=== PATIENT | male | born 1955 | race Two or more races ===

== ENCOUNTER → 2022-01-17 | Outpatient (CLI) | payer OTHER ==
[~2022-01-17] MED LIST: CLARINEX-D 121 EACH PO; DIOVAN HCT 1601 EAC1 PO; GLUCOTROL XL5 MG PO; NORVASC5 MG PO; PROTONIX40 MG PO; TAMS0.4C PO; TOUJEO SOL300 UNIT/1
== END | disposition home or self-care (01) ==
LOC: LAB 09:51
PROVIDERS: ATTEND Orthopaedic Surgery
DX: Z76.89 Persons encountering health services in other specified circumstances (principal); I10 Essential (primary) hypertension; I49.9 Cardiac arrhythmia, unspecified; D64.9 Anemia, unspecified; E88.9 Metabolic disorder, unspecified; D68.8 Other specified coagulation defects; N39.0 Urinary tract infection, site not specified; A49.02 Methicillin resistant Staphylococcus aureus infection, unspecified site; E11.9 Type 2 diabetes mellitus without complications